=== PATIENT | male | born 1945 | race Caucasian/White ===

== ENCOUNTER 2017-08-28 09:25 | Day surgery (SDC) | payer MEDICARE, BC ==
[~2017-08-28] VITALS: Ht 190.5 cm; Wt 91.8 kg
[2017-08-28 09:40] VITALS: BP 151/98
[2017-08-28] MEDS ORDERED: OMEP40CA37 PO (09:41)
[2017-08-28] MEDS ORDERED: ASPI81TA52 PO (09:41)
[2017-08-28] MEDS ORDERED: HYDR-565 PO (09:41)
[2017-08-28] MEDS ORDERED: ROSU20TA PO (09:41)
[2017-08-28] MEDS ORDERED: MIDAZolam 5mg/5ml vial ONE (10:00)
[2017-08-28] MEDS ORDERED: fentaNYL/PF 50MCG/1 ML 2ML syringe ONE ×2 (10:00→11:04)
[2017-08-28] MEDS ORDERED: LIDOcaine Viscous 15ml cup ONE (10:38)
[2017-08-28 11:39] VITALS: BP 131/74
[2017-08-28 11:49] VITALS: BP 130/80
[2017-08-28 11:59] VITALS: BP 131/86
== END 2017-08-28 12:12 | disposition home or self-care (01) ==
LOC: GI LAB 09:25
PROVIDERS: ATTEND Internal Medicine Gastroenterology
DX: Z12.11 Encounter for screening for malignant neoplasm of colon (principal); D12.0 Benign neoplasm of cecum; D12.5 Benign neoplasm of sigmoid colon; D12.3 Benign neoplasm of transverse colon; K44.9 Diaphragmatic hernia without obstruction or gangrene; K21.0 Gastro-esophageal reflux disease with esophagitis; K29.50 Unspecified chronic gastritis without bleeding; I10 Essential (primary) hypertension; E03.9 Hypothyroidism, unspecified; F32.9 Major depressive disorder, single episode, unspecified; Z88.1 Allergy status to other antibiotic agents; Z88.0 Allergy status to penicillin; Z79.82 Long term (current) use of aspirin; Z79.891 Long term (current) use of opiate analgesic; Z79.899 Other long term (current) drug therapy; Z88.8 Allergy status to other drugs, medicaments and biological substances
CPT/HCPCS: 43239; 45380; 45385; J2250; J3010; J7030; 99153; A4620; G0500

== ENCOUNTER 2017-11-28 08:47 | Day surgery (SDC) | payer MEDICARE, BC ==
[~2017-11-28] VITALS: Ht 193 cm; Wt 95.5 kg
[~2017-11-28 08:47] MED LIST: ASPI81TA52 PO; HYDR-565 PO; OMEP40CA37 PO; ROSU20TA PO
[2017-11-28] MEDS ORDERED: METO-395 PO (09:16)
[2017-11-28] MEDS ORDERED: ASPI-611 PO (09:17)
[2017-11-28] MEDS ORDERED: OMEP40CA37 PO (09:17)
[2017-11-28 09:18] VITALS: BP 148/87
[2017-11-28] MEDS ORDERED: LIDOcaine Viscous 15ml cup ONE (10:37)
[2017-11-28] MEDS ORDERED: fentaNYL/PF 50MCG/1 ML 2ML syringe ONE (10:37)
[2017-11-28] MEDS ORDERED: MIDAZolam 5mg/5ml vial ONE ×2 (10:37→10:50)
[2017-11-28 11:06] VITALS: BP 141/91
[2017-11-28 11:16] VITALS: BP 156/98
[2017-11-28 11:26] VITALS: BP 148/88
[2017-11-28 11:36] VITALS: BP 154/89
== END 2017-11-28 11:38 | disposition home or self-care (01) ==
LOC: GI LAB 08:47
PROVIDERS: ATTEND Internal Medicine Gastroenterology
DX: K21.0 Gastro-esophageal reflux disease with esophagitis (principal); K22.2 Esophageal obstruction; K22.70 Barrett's esophagus without dysplasia; K44.9 Diaphragmatic hernia without obstruction or gangrene; I10 Essential (primary) hypertension; Z79.899 Other long term (current) drug therapy; Z79.82 Long term (current) use of aspirin
CPT/HCPCS: 43239; G0500; J2250; J3010; J7030; 88305; A4620

== ENCOUNTER 2022-08-24 20:11 | Emergency (ER) | payer MEDICARE, BC ==
[~2022-08-24] VITALS: Ht 193 cm; Wt 86.4 kg
[~2022-08-24 20:11] MED LIST changes: +ASPI-611 PO; -ASPI81TA52 PO; -HYDR-565 PO; +METO-395 PO; +OMEP40CA21 PO; -OMEP40CA37 PO; -ROSU20TA PO
--- NOTE | 2022-08-24 20:18 | NUR ---
summoned to BS immediately
[2022-08-24] MEDS ORDERED: LIDOcaine 1% 30ml preserv. free vial IJ STA (20:19)
[2022-08-24] MEDS ORDERED: ondansetron/PF 4mg/2ml inj IV STA (20:21)
[2022-08-24] MEDS ORDERED: ceFAZolin/D5W- 1GM premix 50 ML IV STA (20:21)
[2022-08-24] MEDS ORDERED: morphine 4 MG/ML inj SYRINge IV STA (20:21)
--- NOTE | 2022-08-24 21:03 | NUR ---
C-COLLAR PLACED ON PT BY PA. SPINAL PRECAUTIONS IN PLACE.
[2022-08-24 22:25] LABS: BASOPHILS # (AUTO) 0.1 X10'3 (0-0.2); BASOPHILS % (AUTO) 0.9 % (0-1); EOSINOPHILS # (AUTO) 0.1 X10'3 (0-0.9); EOSINOPHILS % (AUTO) 1.7 % (0-6); HEMATOCRIT 36.7 % (42.0-52.0); HEMOGLOBIN 12.3 g/dl (14.0-17.9); LYMPHOCYTES # (AUTO) 2.1 X10'3 (1.1-4.8); LYMPHOCYTES % (AUTO) 30.3 % (21-51); MEAN CORPUSCULAR HEMOGLOBIN 32.9 PG (27.0-31.0); MEAN CORPUSCULAR HGB CONC 33.7 g/dL (33.0-36.5); MEAN CORPUSCULAR VOLUME 97.8 FL (78-98); MEAN PLATELET VOLUME 7.4 FL (7.4-10.4); MONOCYTES # (AUTO) 0.6 X10'3 (0-0.9); MONOCYTES % (AUTO) 9.4 % (2-12); NEUTROPHILS % (AUTO) 57.7 % (42-75); PLATELET COUNT 225 X10'3 (140-440); RED BLOOD COUNT 3.75 X10'6 (4.70-6.10); RED CELL DISTRIBUTION WIDTH 15.3 % (11.5-14.5); WHITE BLOOD COUNT 6.9 X10'3 (4.5-11.0)
[2022-08-24] MEDS ORDERED: tetanus & diphtheria toxoid (Td) vaccine 0.5ml IMVAC ONE (22:30)
[2022-08-24 22:35] LABS: ALANINE AMINOTRANSFERASE 41 U/L (12-78); ALBUMIN 3.6 G/DL (3.4-5.0); ALBUMIN/GLOBULIN RATIO 1.1 (1.1-1.5); ALKALINE PHOSPHATASE 66 IU/L (46-116); ANION GAP 12 (8-16); ASPARTATE AMINO TRANSFERASE 28 U/L (10-37); BILIRUBIN,TOTAL 0.3 MG/DL (0.1-1.0); BLOOD UREA NITROGEN 15 MG/DL (7-18); BUN/CREATININE RATIO 17.6 (10.0-20.0); CALCIUM 8.5 MG/DL (8.5-10.1); CHLORIDE 102 MMOL/L (99-107); CREATININE 0.85 MG/DL (0.60-1.10); GLUCOSE 109 MG/DL (70-104); POTASSIUM 3.8 MMOL/L (3.5-5.1); SODIUM 135 MMOL/L (135-145); TOTAL CARBON DIOXIDE 21.5 MMOL/L (24-32); eGFR 88 ML/MIN
[2022-08-24] MEDS ORDERED: TETanus/Pertussis (Acell)/Diphther VAC/PF (Tdap-Adult) 0.5ml syringe IMVAC ONE (22:40)
[2022-08-24 22:41] LABS: APTT 21 SECONDS (22-32)
--- NOTE | 2022-08-24 22:57 | NUR ---
PERSON TO NOTIFY: KEISHA SHAHID (DAUGHTER) [phone] KYARA LU (DAUGHTER) [phone]
[2022-08-24] MEDS ORDERED: fentaNYL/PF 50MCG/1 ML 2ML syringe IV ONE (23:40)
--- NOTE | 2022-08-25 01:24 | NUR ---
pt educated on the importance of not moving head/neck while in c-collar/on spinal precautions.
[2022-08-25] MEDS ORDERED: fentaNYL/PF 50MCG/1 ML 2ML syringe IV ONE (01:25)
[2022-08-25] MEDS ORDERED: acetaminophen 325mg tablet PO ONE (01:25)
--- NOTE | 2022-08-25 01:54 | NUR ---
REACH NOT FLYING OUT, WILL WEATHER CHECK AT 6AM. [facility] WILL RE-CHECK AT 7AM, PHI DENIED. DR GRACE AT BEDSIDE ASSESSING PT.
[2022-08-25] MEDS ORDERED: oxyCODONE IR 5mg (immed. release) tablet PO ONE (03:00)
[2022-08-25] MEDS ORDERED: ketorolac trometh. 30mg/ml inj. IV ONE (03:05)
[2022-08-25 04:11] VITALS: BP 124/76
== END 2022-08-25 06:03 | disposition short-term general hospital (02) ==
LOC: ER 20:12
DX: S01.112A Laceration without foreign body of left eyelid and periocular area, initial encounter (principal); Z20.822 Contact with and (suspected) exposure to COVID-19; S61.412A Laceration without foreign body of left hand, initial encounter; Z88.0 Allergy status to penicillin; Z79.899 Other long term (current) drug therapy; W45.8XXA Other foreign body or object entering through skin, initial encounter; Y93.89 Activity, other specified; Y92.89 Other specified places as the place of occurrence of the external cause; Y99.8 Other external cause status
CPT/HCPCS: 12004; 12011; 36415; 70450; 72125; 73130; 80053; 85025; 85610; 85730; 86885; 86900; 86901; 87811; 90471; 90715; 96365; 96375; 99285; A6222; J0690; J1885; J2270; J2405; J3010; J7030; L0172; A4615; A6258; A6446; A6449

== ENCOUNTER 2025-01-13 15:17 | Outpatient (CLI) | payer MEDICARE, BC ==
--- NOTE | 2025-01-13 15:47 | ELECTROCARDIOGRAPH REPORT ---
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 GUS Vogel Measurements Intervals Normal Rate: 73 P: 52 OH: 179 QRS: 35 QRSD: 97 T: 51 QT: 397 QTc: 438 Interpretive Statements Sinus rhythm Multiple ventricular premature complexes Baseline wander in lead(s) V3 Electronically Signed On 01-14-2025 18:01:[address] GUS Vogel Please click the below link to view image of tracing.
[2025-01-13 15:55] LABS: MEAN PLATELET VOLUME 6.8 FL (7.4-10.4); RED CELL DISTRIBUTION WIDTH 15.1 % (11.5-14.5)
[2025-01-13 16:10] LABS: CREATININE 0.93 MG/DL (0.60-1.10); TOTAL CARBON DIOXIDE 28.7 MMOL/L (24-32); eGFR 79 ML/MIN
== END 2025-01-13 23:59 | disposition home or self-care (01) ==
LOC: RAD 15:17
PROVIDERS: ATTEND Surgery Vascular Surgery
DX: Z01.818 Encounter for other preprocedural examination (principal); Z86.79 Personal history of other diseases of the circulatory system; I49.3 Ventricular premature depolarization; Z98.890 Other specified postprocedural states
CPT/HCPCS: 36415; 80048; 85025; 93005